=== PATIENT | male | born 1950 | race Caucasian/White ===

== ENCOUNTER 2017-08-22 21:44 | Emergency (ER) | payer OTHER ==
[2017-08-22] MEDS ORDERED: Albuterol Sulfate 2.5 mg/0.5 ml Neb ONE ×3 (21:50→22:09)
[2017-08-22] MEDS ORDERED: methylPREDNISolone Sod Succ/PF 125 MG/2 ML VIAL ONE (22:05)
[2017-08-22 22:13] LABS: Prothrombin Time 14.8 SEC (12.0-14.7)
[2017-08-22] MEDS ORDERED: Ipratropium Bromide 2.5 ml Neb ONE ×2 (22:22)
[2017-08-22 22:23] LABS: ALT (SGPT) 13 U/L (8-55); AST (SGOT) 9 U/L (5-34); Alkaline Phosphatase 77 U/L (40-150); Anion Gap 16 mmol/L (10-20); BUN (Urea Nitrogen) 10 mg/dL (8.4-25.7); Bilirubin, Total 1.1 mg/dL (0.2-1.2); Calc. Creatinine Clearance 0 mL/min (70-130); Calcium 9.2 mg/dL (7.8-10.44); Carbon Dioxide 24 mmol/L (23-31); Chloride 94 mmol/L (98-107); Estimated GFR-MDRD 90; Globulin 3.8 g/dL (2.4-3.5); Protein, Total 7.8 g/dL (5.8-8.1)
--- NOTE | 2017-08-22 22:34 | RAD ---
AP VIEW OF THE CHEST; 08/22/17 INDICATION: Shortness of breath and cough. COMPARISON: Prior exam dated 12/13/15 FINDINGS: Chronic lung changes are similar. The cardiomediastinal silhouette is within normal limits. No acute osseous abnormality is evident. IMPRESSION: No definite acute cardiopulmonary abnormality. POS: [facility]
[2017-08-22 22:37] LABS: pH (venous) 7.355 (7.35-7.45)
[2017-08-22 22:56] LABS: Hematocrit 43.1 % (42.0-52.0); Red Blood Cell (RBC) Count 4.57 mill/uL (4.70-6.10); White Blood Cell (WBC) Count 20.7 thou/uL (4.8-10.8)
[2017-08-22 22:57] LABS: Anisocytosis SLIGHT = 6-15 cells (100X) (0-5/hpf); Band 5 % (5-11); Neutrophil 86 % (42-75); Toxic Granulation MODERATE
[2017-08-22] MEDS ORDERED: Azithromycin 250 MG TAB ONE (23:04)
[2017-08-22] MEDS ORDERED: cefTRIAXone\\ROCEPHIN 1 GM VIAL ONE (23:04)
[2017-08-23 00:50] LABS: Bilirubin Negative (Negative); Blood, Urine Negative (Negative); Glucose, Urine (Dipstick) 500 mg/dL (Negative); Ketone, Urine 15 mg/dL (Negative); Nitrite Negative (Negative); Protein, Urine (Dipstick) 100 mg/dL (Neg-Trace)
[2017-08-23 01:01] LABS: Bacteria/HPF None Seen HPF (None Seen); Hyaline Casts/LPF 0-3 HYALINE CAST LPF (0-3 Hyaline); RBC/HPF 0-3 HPF (0-3); Squamous Epithelial 0-3 HPF (0-3); WBC/HPF 0-3 HPF (0-3)
--- NOTE | 2017-10-13 11:38 | EKG ---
Test Reason : Blood Pressure : / mmHG Vent. Rate : 128 BPM Atrial Rate : 128 BPM P-R Int : 160 ms QRS Dur : 092 ms QT Int : 286 ms P-R-T Axes : 086 093 065 degrees QTc Int : 417 ms Sinus tachycardia Possible Left atrial enlargement Rightward axis Borderline ECG Confirmed by ALPA KING D.O. ([id number]), editor in chief newspaper JOSE ANTONIO MARTINEZ ([id number]) on 10/13/2017 11:38:31 AM Referred By: Confirmed By:ALPA KING D.O.
== END 2017-08-23 02:06 | disposition short-term general hospital (02) ==
LOC: SCSER 21:44
DX: J44.1 Chronic obstructive pulmonary disease with (acute) exacerbation (principal); R09.02 Hypoxemia; D72.829 Elevated white blood cell count, unspecified; I10 Essential (primary) hypertension; E78.5 Hyperlipidemia, unspecified; E78.2 Mixed hyperlipidemia; E11.9 Type 2 diabetes mellitus without complications; Z87.891 Personal history of nicotine dependence; Z79.899 Other long term (current) drug therapy; Z79.84 Long term (current) use of oral hypoglycemic drugs
CPT/HCPCS: 71010; 80053; 81003; 81015; 83605; 83880; 85025; 85610; 87040; 93005; 94644; 96361; 96374; 96375; J0696; J2930; J7611; J7620; J7644